=== PATIENT | female | born 1970 | race Caucasian/White ===

== ENCOUNTER → 2018-05-31 08:56 | Outpatient (CLI) | payer BC | END | disposition home or self-care (01) | LOC: D.MRI 05-15 15:30 | DX: M54.14 Radiculopathy, thoracic region (principal) ==

== ENCOUNTER → 2018-09-30 13:24 | Outpatient (CLI) | payer BC ==
[2018-09-30 15:03] LABS: BASOPHILS 0.4 % (0-2); EOSINOPHILS 2.8 % (0-7); HEMATOCRIT 40.7 % (36.0-48.0); HEMOGLOBIN 13.5 g/dL (12-16); IMMATURE GRANULOCYTES 0.2 % (0-5); LYMPHOCYTES 43.3 % (15-50); MCH 28.1 pg (26.0-34.0); MCHC 33.2 g/dL (31.0-37.0); MCV 84.6 fL (80.0-100.0); MEAN PLATELET VOLUME 10.2 fL (7.4-10.4); MONOCYTES 5.4 % (2-11); NEUTROPHILS 47.9 % (40-80); PLATELET COUNT 294 10x3/uL (130-400); RBC 4.81 10x6/uL (4.00-5.40); RDW 14.8 % (11.5-14.5); WBC 10.9 10x3/uL (4.8-10.8)
[2018-09-30 15:47] LABS: % SATURATION 11 % (15-55); IRON 37 ug/dl (35-150); TOTAL IRON BIND CAPACITY 332 ug/dl (260-445); UNSAT IRON BIND CAPACITY 295 ug/dl (150-375)
[2018-09-30 15:55] LABS: ALKALINE PHOSPHATASE 75 U/L (46-116); ALT (SGPT) 26 U/L (10-68); BILIRUBIN - TOTAL 0.25 mg/dL (0.2-1.3); CALC OSMOLALITY 277 mosm/kg (275-300); CALCIUM 8.9 mg/dL (8.5-10.1); CHLORIDE - SERUM 103 mmol/L (98-107); CHOL - HDL RATIO 3.2 ratio (2.3-4.1); CHOLESTEROL, TOTAL 149 mg/dL (0-200); CREATININE - SERUM 0.8 mg/dL (0.6-1.3); GLUCOSE 95 mg/dL (74-106); HDL CHOLESTEROL 47 mg/dL (32-96); LDL CHOLESTEROL 77 mg/dL (0-100); LDL-HDL RATIO 1.6 ratio (1.5-3.5); PROTEIN - SERUM 7.3 g/dL (6.4-8.2); SODIUM 140 mmol/L (136-145); T4 THYROXIN - FREE 1.34 ng/dL (0.76-1.46); T4 THYROXINE 11.1 ug/dL (4.7-13.3); THYROID STIMULATING HORMONE 0.44 uIU/mL (0.36-3.74); TRIGLYCERIDE 125 mg/dL (30-200); UREA NITROGEN 11 mg/dL (7-18); eGFR NON AFRICAN AMERICAN 81 mL/min (90-120)
[2018-10-01 07:18] LABS: VITAMIN D 25 HYDROXY 43.2 ng/mL (30.0-100.0)
[2018-10-01 08:13] LABS: T3 - FREE 2.5 pg/mL (2.0-4.4)
[2018-10-01 11:12] LABS: FOLATE (FOLIC ACID) - SERUM >20.0 ng/mL (>3.0)
== END | disposition home or self-care (01) ==
LOC: D.LAB 13:24
PROVIDERS: ATTEND Surgery
DX: E55.9 Vitamin D deficiency, unspecified (principal); E03.9 Hypothyroidism, unspecified; E03.4 Atrophy of thyroid (acquired); R53.83 Other fatigue; E51.9 Thiamine deficiency, unspecified; D51.9 Vitamin B12 deficiency anemia, unspecified; R68.89 Other general symptoms and signs

== ENCOUNTER → 2018-12-27 09:37 | Outpatient (CLI) | payer BC ==
[2018-12-27 14:53] LABS: BASOPHILS 0.4 % (0-2); EOSINOPHILS 2.9 % (0-7); HEMATOCRIT 40.1 % (36.0-48.0); HEMOGLOBIN 13.4 g/dL (12-16); IMMATURE GRANULOCYTES 0.2 % (0-5); LYMPHOCYTES 40.3 % (15-50); MCH 29.1 pg (26.0-34.0); MCHC 33.4 g/dL (31.0-37.0); MCV 87.2 fL (80.0-100.0); MEAN PLATELET VOLUME 10.8 fL (7.4-10.4); MONOCYTES 5.1 % (2-11); NEUTROPHILS 51.1 % (40-80); PLATELET COUNT 300 10x3/uL (130-400); RDW 14.2 % (11.5-14.5)
[2018-12-27 15:42] LABS: ALBUMIN 3.6 g/dL (3.4-5.0); ALKALINE PHOSPHATASE 82 U/L (46-116); ALT (SGPT) 16 U/L (10-68); BILIRUBIN - TOTAL 0.18 mg/dL (0.2-1.3); CALC OSMOLALITY 280 mosm/kg (275-300); CALCIUM 8.8 mg/dL (8.5-10.1); CARBON DIOXIDE 31.6 mmol/L (21.0-32.0); CHLORIDE - SERUM 105 mmol/L (98-107); CHOL - HDL RATIO 2.7 ratio (2.3-4.1); CHOLESTEROL, TOTAL 137 mg/dL (0-200); CREATININE - SERUM 0.8 mg/dL (0.6-1.3); GLUCOSE 114 mg/dL (74-106); HDL CHOLESTEROL 51 mg/dL (32-96); LDL CHOLESTEROL 64 mg/dL (0-100); LDL-HDL RATIO 1.3 ratio (1.5-3.5); POTASSIUM - SERUM 4.6 mmol/L (3.5-5.1); PROTEIN - SERUM 6.7 g/dL (6.4-8.2); SODIUM 141 mmol/L (136-145); T4 THYROXIN - FREE 1.17 ng/dL (0.76-1.46); T4 THYROXINE 9.1 ug/dL (4.7-13.3); THYROID STIMULATING HORMONE 0.32 uIU/mL (0.36-3.74); TRIGLYCERIDE 114 mg/dL (30-200); UREA NITROGEN 11 mg/dL (7-18); eGFR NON AFRICAN AMERICAN 81 mL/min (90-120)
== END | disposition home or self-care (01) ==
LOC: D.LAB 09:37
PROVIDERS: ATTEND Surgery
DX: E55.9 Vitamin D deficiency, unspecified (principal); E51.9 Thiamine deficiency, unspecified; E87.8 Other disorders of electrolyte and fluid balance, not elsewhere classified; E11.8 Type 2 diabetes mellitus with unspecified complications; E03.9 Hypothyroidism, unspecified; E03.4 Atrophy of thyroid (acquired); R53.83 Other fatigue

== ENCOUNTER 2019-03-21 01:42 | Inpatient (IN) | payer BC ==
[~2019-03-21] VITALS: Ht 162.6 cm; Wt 104.3 kg
[2019-03-21] MEDS ORDERED: LISINOPRIL30 MG PO (01:48)
[2019-03-21] MEDS ORDERED: METOPROLOL TART25 MG PO (01:48)
[2019-03-21] MEDS ORDERED: GLUCOVANCE PO (01:49)
[2019-03-21] MEDS ORDERED: NOVOLIN 70/30 110 ML SC (01:49)
[2019-03-21 01:57] LABS: BASOPHILS 0.4 % (0-2); EOSINOPHILS 1.7 % (0-7); HEMATOCRIT 43.6 % (36.0-48.0); HEMOGLOBIN 14.7 g/dL (12-16); IMMATURE GRANULOCYTES 0.2 % (0-5); LYMPHOCYTES 28.1 % (15-50); MCH 29.6 pg (26.0-34.0); MCHC 33.7 g/dL (31.0-37.0); MCV 87.7 fL (80.0-100.0); MEAN PLATELET VOLUME 10.4 fL (7.4-10.4); MONOCYTES 3.4 % (2-11); NEUTROPHILS 66.2 % (40-80); PLATELET COUNT 314 10x3/uL (130-400); RBC 4.97 10x6/uL (4.00-5.40); RDW 13.8 % (11.5-14.5); WBC 12.6 10x3/uL (4.8-10.8)
[2019-03-21 02:14] LABS: ALBUMIN 3.9 g/dL (3.4-5.0); ALKALINE PHOSPHATASE 79 U/L (46-116); ALT (SGPT) 14 U/L (10-68); BILIRUBIN - TOTAL 0.28 mg/dL (0.2-1.3); CALC OSMOLALITY 286 mosm/kg (275-300); CALCIUM 9.4 mg/dL (8.5-10.1); CARBON DIOXIDE 26.8 mmol/L (21.0-32.0); CHLORIDE - SERUM 106 mmol/L (98-107); CREATININE - SERUM 1.1 mg/dL (0.6-1.3); GLUCOSE 136 mg/dL (74-106); POTASSIUM - SERUM 4.5 mmol/L (3.5-5.1); PROTEIN - SERUM 7.6 g/dL (6.4-8.2); SODIUM 143 mmol/L (136-145); UREA NITROGEN 13 mg/dL (7-18); eGFR NON AFRICAN AMERICAN 56 mL/min (90-120)
[2019-03-21 02:18] LABS: LIPASE 146 U/L (73-393); TROPONIN-I < 0.017 ng/mL (0.000-0.060)
--- NOTE | 2019-03-21 03:10 | NUR ---
BLADDER SCAN DONE ON PT 177 ML IN BLADDER.
--- NOTE | 2019-03-21 03:18 | NUR ---
PT GIVEN HEAT PACK FOR PAIN.
--- NOTE | 2019-03-21 03:35 | NUR ---
PT AMBULATED TO RESTROOM INDEPENDENTLY.
--- NOTE | 2019-03-21 03:41 | NUR ---
URINE SENT TO LAB.
[2019-03-21] MEDS ORDERED: ZOFRAN ODT4 MG/UDTAB PO (03:49)
[2019-03-21] MEDS ORDERED: HYDROCODON-ACE1 EA10 PO (03:49)
[2019-03-21 04:01] LABS: APPEARANCE HAZY (CLEAR); BILIRUBIN NEGATIVE (NEGATIVE); COLOR YELLOW (YELLOW); GLUCOSE NEGATIVE (NEGATIVE); KETONE MODERATE mg/dL (NEGATIVE); NITRITE NEGATIVE (NEGATIVE); PROTEIN 1+ mg/dL (NEGATIVE); SPECIFIC GRAVITY 1.015 (1.005-1.020); UROBILINOGEN NORMAL (NORMAL)
[2019-03-21 04:02] LABS: UDS - AMPHET NEGATIVE QUAL (NEGATIVE); UDS - BARB NEGATIVE QUAL (NEGATIVE); UDS - BENZO POSITIVE QUAL (NEGATIVE); UDS - COCAINE NEGATIVE QUAL (NEGATIVE); UDS - OPIATE POSITIVE QUAL (NEGATIVE); UDS - PCP NEGATIVE QUAL (NEGATIVE); UDS - THC NEGATIVE QUAL (NEGATIVE)
[2019-03-21 04:03] LABS: BACTERIA MODERATE /hpf (NEGATIVE); CALCIUM OXALATE CRYSTALS 0-5 /hpf (NONE SEEN); EPITHELIAL CELLS 0-5 /hpf (0-5); MUCUS <1+ /lpf (NONE SEEN); RED CELLS - URINE 0-5 /hpf (0-5)
--- NOTE | 2019-03-21 05:20 | NUR ---
RECEIVED PATIENT TO ROOM 1206 VIA WHEELCHAIR. PATIENT AMBULATED INDEPENDENTLY TO BATHROOM. PATIENT C/O PAIN IN LOWER ABDOMEN. QUICK START, MED REC, ADULT HX, SUICIDE SCREENING COMPLETE. PRN DILAUDID ADMINISTERED PER ORDERS. PATIENT HAS IV TO LT AC INFUSING NS @125ML/HR, PATENT, DRSG C/D/I. FRESH ICE WATER GIVEN. PATIENT DENIES FURTHER NEEDS AT THIS TIME. CL IN REACH, BED LOCKED AND LOWERED. WILL CTM.
[2019-03-21] MEDS ORDERED: PRAVASTATIN SOD10 MG PO (05:40)
[2019-03-21 06:07] VITALS: BP 124/59
--- NOTE | 2019-03-21 07:57 | NUR ---
PT RESTING. RR EVEN AND UNLABORED. DENIES NEEDS OR PAIN AT THIS TIME.WILL CONTINUE TO MONITOR.
[2019-03-21 09:04] VITALS: Ht 162.6 cm; Wt 104.3 kg
[2019-03-21 09:13] VITALS: BP 116/68
--- NOTE | 2019-03-21 12:09 | NUR ---
I have reviewed this patient and I concur with the Shift Assessment completed by the Licensed Practical Nurse today this shift.
--- NOTE | 2019-03-21 14:59 | NUR ---
PT REQUESTED/INSISTED THAT SHE MANAGE HER OWN BLOOD SUGAR. DR. NOONAN MADE AWARE OF THIS. STATED SHE DID NOT HAVE A PROBLEM WITH IT. MOLDER CLOSED MOLDS CONTACTED FOR CORRECT POLICY OVER SUCH REQUEST. STATED PT NEEDED TO HAVE MEDICATION SENT TO PHARMACY FOR LABELLING AND THAT PT HAD TO ADMINISTER MEDICATION UNDER NURSING SUPERVISION. PT WILL BE MADE AWARE OF THIS. ORDERS TO D/C CURRENT INSULIN MEDICATION WERE RECIEVED VIA TELEPHONE.
--- NOTE | 2019-03-21 15:45 | NUR ---
TOOK PT'S INSULIN PEN TO PHARMACY TO BE LABELLED. INSULIN PEN WAS SET BACK ON BED SIDE TABLE. PT C/O 02/18 PAIN IN RIGHT FLANK. TORODOL RECIEVED PER ORDER.
--- NOTE | 2019-03-21 18:26 | NUR ---
CHECKED TO SEE IF PT HAD RECIEVED INSULIN, PT STATED SHE HAD JUST WOKE UP AND DID NOT ADMINISTER INSULIN. UPON FURTHER INSPECTION, INSULIN PEN WAS NOT ON THE BEDSIDE TABLE WHERE IT WAS LEFT, NOR ANYWHERE IN THE ROOM. PT STATES THE PEN MIGHT HAVE ACCIDENTALLY BEEN TAKEN WITH HER MEAL TRAY. DIETARY CONTACTED, STATES THEY DID NOT SEE AN INSULIN PEN. PHARMACY CONTACTED, STATES THEY DO NOT HAVE ANOTHER INSULIN PEN IN THAT SPECIFIC BRAND AND DOSAGE. KELLEE, COMMUNICATIONS BILLING ANALYST MADE AWARE OF SITUATION, STATES SHE WILL CALL BACK.
--- NOTE | 2019-03-21 18:41 | NUR ---
PT STATES SHE WILL HAVE HER BRING HER A NEW INSULIN PEN IN THE AM. STATED SHE WILL BE OKAY FOR THE NIGHT BECAUSE HER FSBS WAS 230. REHAB AID MADE AWARE.
--- NOTE | 2019-03-21 19:25 | NUR ---
TALITA LYING IN BED. PATIENT STATES PAIN IS A 7/10. SAYS SHE HAS NEVER HAD THIS MUCH PAIN IN HER ENTIRE LIFE. ENCOURAGED PATIENT TO CALL WITH ANY NEEDS. CALL LIGHT AND BEDSIDE TABLE WITHIN REACH.
[2019-03-21 19:40] VITALS: BP 121/76
--- NOTE | 2019-03-21 20:28 | NUR ---
PATIENT ALERT AND ORIENTED X4. PATIENT GAVE HERSELF 15 UNITS OF INSULIN WITH PEN.
--- NOTE | 2019-03-21 22:38 | NUR ---
BS 287. PATIENT ALERT AND ORIENTED X4. PATIENT SELF ADMINISTERED 10 UNITS OF INSULIN.
[2019-03-21 23:39] VITALS: BP 106/60
--- NOTE | 2019-03-22 01:57 | NUR ---
PATIENT ALERT AND ORIENTED X4. BLOOD SUGAR 203. PATIENT ADMINISTERED 15 UNITS OF INSULIN.
[2019-03-22 04:22] VITALS: BP 89/50
[2019-03-22 07:17] LABS: BASOPHILS 0.4 % (0-2); EOSINOPHILS 1.5 % (0-7); HEMATOCRIT 40.9 % (36.0-48.0); HEMOGLOBIN 12.9 g/dL (12-16); IMMATURE GRANULOCYTES 0.3 % (0-5); LYMPHOCYTES 7.8 % (15-50); MCH 29.2 pg (26.0-34.0); MCHC 31.5 g/dL (31.0-37.0); MEAN PLATELET VOLUME 10.5 fL (7.4-10.4); MONOCYTES 5.9 % (2-11); NEUTROPHILS 84.1 % (40-80); RBC 4.42 10x6/uL (4.00-5.40); RDW 14.5 % (11.5-14.5); WBC 14.8 10x3/uL (4.8-10.8)
[2019-03-22 07:35] LABS: MCV 92.5 fL (80.0-100.0); PLATELET COUNT 184 10x3/uL (130-400)
[2019-03-22 08:38] LABS: ANION GAP 8.9 mmol/L (8-16); CALCIUM 8.2 mg/dL (8.5-10.1); CARBON DIOXIDE 26.4 mmol/L (21.0-32.0); POTASSIUM - SERUM 4.3 mmol/L (3.5-5.1)
[2019-03-22 08:39] LABS: CREATININE - SERUM 1.4 mg/dL (0.6-1.3)
[2019-03-22 09:07] VITALS: BP 112/61
--- NOTE | 2019-03-22 09:11 | NUR ---
ALERT AND ORIENTED. L ARM IV INFILTRATED. WARM HEAT APPLIED AND IV CATH REMOVED. RESP EVEN AND UNLABORED. CL IN REACH.
--- NOTE | 2019-03-22 10:57 | NUR ---
SL SITED R HAND X 2 STICKS BY ANOTHER NURSE. FLUSHES AND INFUSING WO DIFFICULTY.
--- NOTE | 2019-03-22 13:44 | NUR ---
NO CHANGE IN ASSESSMENT. RESTING WO C/O PAIN AT THIS TIME. PAIN MEDS GIVEN EARILER. CL IN REACH.
--- NOTE | 2019-03-22 14:14 | NUR ---
PATIENT'S DAUGHTER HELPING HER GET BATH.
[2019-03-22 15:29] VITALS: BP 96/48
[2019-03-22 19:30] VITALS: BP 143/67
--- NOTE | 2019-03-22 19:30 | NUR ---
PATIENT RESTING IN BED WITH C/O 10/10 THROBBING PAIN IN HER HEAD. PATIENT IS ALSO VOMITING AT THIS TIME. ADMINISTERED TORADOL PER ORDERS. VSS. PATIENT DENIES OTHER NEEDS AT THIS TIME. BED IN LOWEST POSITION AND CALL LIGHT WITHIN REACH. ENCOURAGED THE PATIENT TO CALL IF SHE HAS NEEDS. WILL CONTINUE TO MONITOR.
--- NOTE | 2019-03-22 19:43 | NUR ---
PATIENT RESTING IN BED WITH C/O 7/10 PAIN IN HER HEAD. ADMINISTERED PATIENT'S NIGHT MEDS WITH NORCO PER HER REQUEST. PATIENT VOMITED AFTER TAKING HER PO MEDS. PATIENT REFUSED PO MEDS AT THIS TIME. I GAVE PATIENT AN ICE PACK FOR HER HEAD AND A COLD CLOTH. PATIENT STATED THE ICE PACK FEELS BETTER AND DENIES OTHER NEEDS AT THIS TIME. BED IN LOWEST POSITION AND CALL LIGHT WITHIN REACH. ENCOURAGED THE PATIENT TO CALL IF SHE HAS NEEDS. WILL CONTINUE TO MONITOR.
[2019-03-22 23:49] VITALS: BP 126/50
[2019-03-23 04:45] VITALS: BP 122/55
[2019-03-23 07:17] VITALS: BP 142/78
--- NOTE | 2019-03-23 07:21 | NUR ---
pt awake and oriented LYING IN BED. NO COMPLAINTS/COCNERNS, ALL QUESTIONS ASNWERED TO THE BEST OF MY ABILITY. NO FAMILY PRESENT AT BEDSIDE AT THIS TIME. CL IN REACH, SRX2.
[2019-03-23 08:14] LABS: BASOPHILS 0.2 % (0-2); EOSINOPHILS 0.8 % (0-7); HEMATOCRIT 38.4 % (36.0-48.0); HEMOGLOBIN 12.8 g/dL (12-16); IMMATURE GRANULOCYTES 0.3 % (0-5); LYMPHOCYTES 14.7 % (15-50); MCH 29.5 pg (26.0-34.0); MCHC 33.3 g/dL (31.0-37.0); MEAN PLATELET VOLUME 10.5 fL (7.4-10.4); PLATELET COUNT 180 10x3/uL (130-400); RBC 4.34 10x6/uL (4.00-5.40)
[2019-03-23 08:16] LABS: ANION GAP 14.4 mmol/L (8-16); CALCIUM 8.3 mg/dL (8.5-10.1); CARBON DIOXIDE 23.8 mmol/L (21.0-32.0); CREATININE - SERUM 1.3 mg/dL (0.6-1.3); POTASSIUM - SERUM 4.2 mmol/L (3.5-5.1)
[2019-03-23 08:18] LABS: MCV 88.5 fL (80.0-100.0); WBC 10.5 10x3/uL (4.8-10.8)
[2019-03-23] MEDS ORDERED: NOVOLIN 70/30 110 ML SC (08:33)
[2019-03-23] MEDS ORDERED: LEVAQUIN750 MG PO (09:01)
[2019-03-23] MEDS ORDERED: FLOMAX0.4 MG PO (09:01)
[2019-03-23] MEDS ORDERED: TORADOL10 MG PO (10:01)
--- NOTE | 2019-03-23 10:51 | NUR ---
PT STATES HER RIDE WILL NOT BE HERE FOR ABOUT 1 HOUR OR SO. PAPERWORK SIGNED, I/V OUT TIP INTACT.
--- NOTE | 2019-03-23 11:12 | NUR ---
I have reviewed this patient and I concur with the Shift Assessment completed by the Licensed Practical Nurse today this shift.
--- NOTE | 2019-03-23 12:03 | NUR ---
PT WALKED OUT VIA SELF AMBULATION, DENIES WANT/NEED FOR A WHEELCHAIR[facility]
--- NOTE | 2019-03-23 14:57 | MORECARE ---
CASE MANAGEMENT DISCHARGE SUMMARY PATIENT: RICHAR ADAMSON UNIT: [id number] ADM DATE: 03/22/19 AGE: 48 : [birth year] SEX: F ROOM/BED: D.1206 AUTHOR: GABRIELE MCCRAY PHYSICIAN: REFERRING PHYSICIAN: NATHAN GOOD MD DATE OF SERVICE: 03/23/19 Discharge Plan Patient Name: [facility]ICHAR ADAMSON [facility] [facility] 1970 Planned Disposition: Home Anticipated Discharge Date: Discharge Date: 03/23/2019 Expected LOS: Initial Reviewer: [email or web address] Initial Review Date: 03/21/2019 Generated: 03/23/19 3:57 pm Patient Name: RICHAR ADAMSON Page 15733 at 2956 All edits/amendments must be made on the electronic document DICTATION DATE: 03/23/191456 HAIRSPRING ASSEMBLER: RODRIGUEZ 03/23/191456 RPT#: [id number] DC DATE:03/23/19 STATUS: DIS IN [facility] [address] [place] [address] END OF REPORT
[2019-03-31] MEDS ORDERED: LEVOXYL175 MCG PO (14:12)
[2019-03-31] MEDS ORDERED: PROZAC20 MG PO (14:12)
[2019-03-31] MEDS ORDERED: BAYER CHEWABLE81 MG PO (14:13)
[2019-03-31] MEDS ORDERED: MERIBIN5 MG PO (14:20)
[2019-03-31] MEDS ORDERED: MULTI-DAY VITAM1 TAB PO (14:20)
[2019-03-31] MEDS ORDERED: MAGNESIUM OXID250 MG PO (14:20)
[2019-03-31] MEDS ORDERED: KEFLEX500 MG PO (14:22)
== END 2019-03-23 12:04 | disposition home or self-care (01) | DRG 872 ==
LOC: D.ER 01:42 → OBSVTIME 04:29 → D.M3 04:29
PROVIDERS: Family Medicine; ADMIT Internal Medicine Nephrology; ATTEND Internal Medicine Nephrology
DX: A41.9 Sepsis, unspecified organism (principal); N13.2 Hydronephrosis with renal and ureteral calculous obstruction; F17.213 Nicotine dependence, cigarettes, with withdrawal; N39.0 Urinary tract infection, site not specified; I10 Essential (primary) hypertension; E78.5 Hyperlipidemia, unspecified; E11.9 Type 2 diabetes mellitus without complications; E66.01 Morbid (severe) obesity due to excess calories; R51 Headache

== ENCOUNTER 2019-04-01 06:30 | Inpatient (IN) | payer BC ==
[2019-03-31 14:56] LABS: BASOPHILS 0.3 % (0-2); EOSINOPHILS 1.7 % (0-7); HEMATOCRIT 40.8 % (36.0-48.0); HEMOGLOBIN 13.6 g/dL (12-16); IMMATURE GRANULOCYTES 0.3 % (0-5); LYMPHOCYTES 43.1 % (15-50); MCH 29.3 pg (26.0-34.0); MCHC 33.3 g/dL (31.0-37.0); MCV 87.9 fL (80.0-100.0); MEAN PLATELET VOLUME 9.3 fL (7.4-10.4); MONOCYTES 4.5 % (2-11); NEUTROPHILS 50.1 % (40-80); RBC 4.64 10x6/uL (4.00-5.40); RDW 13.9 % (11.5-14.5); WBC 14.3 10x3/uL (4.8-10.8)
[2019-03-31 15:08] LABS: APTT 43.2 SECONDS (22.8-39.4); PLATELET COUNT 463 10x3/uL (130-400); PROTIME 12.7 SECONDS (11.6-15.0)
[2019-03-31 15:10] LABS: ANION GAP 9.9 mmol/L (8-16); CALCIUM 8.7 mg/dL (8.5-10.1); CARBON DIOXIDE 29.4 mmol/L (21.0-32.0); CREATININE - SERUM 0.9 mg/dL (0.6-1.3); POTASSIUM - SERUM 4.3 mmol/L (3.5-5.1)
[~2019-04-01] VITALS: Ht 162.6 cm; Wt 102.7 kg
--- NOTE | ~2019-04-01 | HEMODYNAMI ---
PATIENT:RICHAR ADAMSON MEDICAL RECORD: [id number] : 68 LOCATION:Any ADMISSION DATE: 04/01/19 Generatedon:04/01/201910:43 Patient name: RICHAR ADAMSON Patient #: [id number] SSN: : 1970 Date of study: 04/01/2019 Page: Of Hemodynamic Procedure Report Patient Data Patient Demographics Procedure consent was obtained First Name: RICHAR Gender: Female Last Name: JUAN DIEGO : 1970 [facility] Initial: VELMA Age: 48 year(s) Patient #: [id number] Race: Unknown Additional ID: [id number] Contact details Address: [address] [place] [address] State: [facility] Zip code: [address] Past Medical History Allergies Allergen Reaction Date Comments Reported Other allergy 04/01/2019 flomax Admission Admission Data Admission Date: 04/01/2019 Admission Time: 6:30 Procedure Procedure Types Cath Procedure Peripheral Cath Diagnostic Procedure Plunket Nurse Peripheral Procedures Nephro Perc Neph Uret Cath Procedure Description Procedure Date Procedure Date: 04/01/2019 Procedure Start Time: 9:43 Procedure Staff Name Function Home Maki MD Performing Physician Bonny Khalil RT Milk Drier Brittni Beltran RN Nurse Reyna Diaz RN Nurse IMTIAZ GRACIA RT Scrub Procedure Data Cath Procedure Fluoroscopy Diagnostic fluoroscopy Total fluoroscopy Time: time: 14.5 min 14.5 min Diagnostic fluoroscopy Total fluoroscopy dose: 516 dose: 516 mGy mGy Contrast Material Contrast Material Type Amount (ml) Isovue 300 35 Procedure Medications Medication Administration Route Dosage Heparin Flush Bag added to field 1 bags (1000units/500ml NS) Lidocaine 1% added to field 20 Versed I.V. 1 mg Fentanyl I.V. 50 mcg Versed I.V. 1 mg Fentanyl I.V. 50 mcg Benadryl I.V. 50 mg Versed I.V. 0.5 mg Fentanyl I.V. 25 mcg Versed I.V. 0.5 mg Fentanyl I.V. 25 mcg Versed I.V. 1 mg Fentanyl I.V. 50 mcg Versed I.V. 1 mg Fentanyl I.V. 50 mcg Hemodynamics Rest Heart Rate: 56 (bpm) Snapshots Pre Cath Intra NCS Post Cath Vital Signs Time Heart Resp SPO2 etCO2 NIBP (mmHg) Rhythm Pain Sedation Rate (ipm) (%) (mmHg) Status Level (bpm) 9:20:21 55 6 100 25.6 152/89(97) NSR 0 (11) 10(A) , No pain 9:24:37 55 13 100 38.5 145/83(98) NSR 0 (11) 10(A) , No pain 9:28:49 53 12 100 36.2 154/83(99) NSR 0 (11) 10(A) , No pain 9:32:47 51 16 100 33.9 118/80(95) NSR 0 (11) 10(A) , No pain 9:37:46 56 20 100 41.5 131/85(92) NSR 0 (11) 10(A) , No pain 9:41:58 55 15 100 36.9 135/68(92) NSR 0 (11) 10(A) , No pain 9:46:57 53 28 100 36.2 Measuring NSR 0 (11) 9(A) , No pain 9:48:21 52 25 100 38.5 Time NSR 0 (11) 9(A) Exceeded , No pain 9:49:24 65 17 99 30.2 138/97(103) NSR 0 (11) 9(A) , No pain 9:53:30 52 52 100 41.5 146/94(117) NSR 0 (11) 8(A) , No pain 9:57:38 51 49 100 46.1 164/99(117) NSR 0 (11) 8(A) , No pain 10:01:52 61 15 99 38.5 157/107(129) NSR 0 (11) 8(A) , No pain 10:06:04 59 33 98 38.5 156/105(141) NSR 0 (11) 8(A) , No pain 10:11:03 58 17 100 43 Measuring NSR 0 (11) 8(A) , No pain 10:11:07 57 17 100 42.3 143/101(117) NSR 0 (11) 8(A) , No pain 10:15:19 54 12 100 46 136/78(110) NSR 0 (11) 8(A) , No pain 10:19:27 55 15 99 154/81(105) NSR 0 (11) 8(A) , No pain 10:23:41 53 19 99 138/89(112) NSR 0 (11) 8(A) , No pain 10:27:46 54 16 100 146/93(115) NSR 0 (11) 8(A) , No pain 10:31:54 55 12 100 43 142/99(113) NSR 0 (11) 8(A) , No pain 10:36:02 57 14 100 44.5 156/94(121) NSR 0 (11) 8(A) , No pain 10:40:16 55 23 100 150/93(114) NSR 0 (11) 8(A) , No pain Medications Time Medication Route Dose Verified Delivered Reason Notes Effe ctiveness by by 9:33:49 Heparin Flush added 1 Home Bhat used for Bag to bags Maki Maki procedure (1000units/500ml field MD AVINA NS) 9:34:06 Lidocaine 1% added 20ml Home Bhat for local to vial Maki Maki anesthetic field MD AVINA 9:43:49 Versed I.V. 1 mg Home Elkins for Maki Beltran RN sedation 9:44:02 Fentanyl I.V. 50 Home Elkins for mcg Maki Beltran RN sedation 9:49:52 Versed I.V. 1 mg Home Elkins for Maki Beltran RN sedation 9:50:00 Fentanyl I.V. 50 Home Stratton[place] for mcg Maki Beltran RN sedation 9:52:56 Benadryl I.V. 50 mg Home Strattoni Per Maki Beltran RN physician 9:56:36 Versed I.V. 0.5 Home Strattoni for mg Maki Beltran RN sedation 9:56:45 Fentanyl I.V. 25 Home Strat[place] for mcg Maki Beltran RN sedation 9:59:23 Versed I.V. 0.5 Home Strat[place] for mg Maki Beltran RN sedation 9:59:30 Fentanyl I.V. 25 Home Brittni for mcg Maki Beltran RN sedation 10:08:15 Versed I.V. 1 mg Home Elkins for Glynn Beltran RN sedation 10:08:24 Fentanyl I.V. 50 Home Elkins for mcg Glynn Beltran RN sedation 10:27:02 Versed I.V. 1 mg Home Elkins for Glynn Beltran RN sedation 10:27:10 Fentanyl I.V. 50 Home Elkins for [facility] Glynn Beltran RN sedation Procedure Log Time Note 9:17:34 Time tracking: Regular hours (M-F 7:00 - 5:00) 9:18:19 Plan of Care:Hemodynamics will remain stable., Cardiac rhythm will remain stable., Comfort level will be maintained., Respiratory function will remain adequate., Patient/ family verbilizes understanding of procedure., Procedure tolerated without complication., Recovers from procedure without complications.. 9:18:27 Patient received from Outpatients to IR Alert and oriented. Tansferred to table in Prone position. 9:18:31 Signed procedure consent form obtained from patient. 9:18:37 ECG and BP/O2 sat monitors applied to patient. 9:18:38 Vital chart was started 9:18:42 Baseline sample Acquired. 9:18:44 Full Disclosure recording started 9:18:45 - 9:18:52 H&P Date Dictated: 04/01/2019 Within 30 days and on chart., H&P Addendu m completed by physician on day of procedure. (MUST COMPLETE FOR ALL OUTPATIENTS). 9:18:54 Pre-procedure instructions explained to patient. 9:18:55 Pre-op teaching completed and patient verbalized understanding. 9:18:58 Family in patients room. 9:19:02 Patient NPO since Midnight. 9:19:29 Patient allergic to Other allergyflomax 9:19:40 Is the patient allergic to Iodine/contrast media? No. 9:19:51 Is patient on blood thinner?No 9:20:02 Patient diabetic? Yes. 9:20:04 If diabetic: On Metformin? Yes 9:20:11 - 9:20:12 ----Pre-sedation anethsthesia assessment.---- 9:20:16 Previous problem with sedation/anesthesia? No ? 9:20:21 Snore? Yes 9:20:23 Sleep apnea? Yes 9:20:25 Deviated septum? No 9:20:26 Opens mouth fully? Yes 9:20:29 Sticks out tongue? Yes 9:20:42 Airway obstruction? No ? 9:20:53 Dentures? No ? 9:20:55 - 9:21:05 IV patent on arrival in right hand with D5/.45%NaCl at KVO. 9:21:30 Right Renal was prepped with chlora-prep and draped in sterile fashion. 9:21:37 Fire Safety Assessment: A--An alcohol-based skin anteseptic being used preoperatively., C--Open oxygen or nitrous oxide is being used. 9:21:43 - 9:22:04 Use device set IR Diagnostic 9:22:34 KIT, INTRODUCER ACCUSTICK II W/C ([id number]) opened to sterile field. 9:22:35 GLIDE CATHETER 5FR ANGLED 65cm (CG507) opened to sterile field. 9:22:52 Tegaderm 4 x 4 (1626W) opened to sterile field. 9:22:53 Sterile Angiographic Pack opened to sterile field. 9:22:55 Bag Decanter () opened to sterile field. 9:23:34 - 9:33:49 Heparin Flush Bag (1000units/500ml NS) 1 bags added to field was administered by Home Maki MD; used for procedure; Verbal order read back and verified. 9:34:06 Lidocaine 1% 20ml vial added to field was administered by Home Maki MD; for local anesthetic; Verbal order read back and verified. 9:42:16 Physician arrived 9:42:16 --------ALL STOP TIME OUT------ 9:42:17 Final Timeout: patient, procedure, and site verified with staff and physician. All members of the team are in agreement. 9:43:24 Procedure started. 9:43:34 Local anesthetic to Right Renal area with Lidocaine 1% by Home Maki MD.INITIAL ACCESS ONLY 9:43:49 Versed 1 mg I.V. was administered by Brittni Beltran RN; for sedation; Verbal order read back and verified. 9:44:02 Fentanyl 50 mcg I.V. was administered by Brittni Beltran RN; for sedation; Verbal order read back and verified. 9:49:52 Versed 1 mg I.V. was administered by Brittni Beltran RN; for sedation; Verbal order read back and verified. 9:50:00 Fentanyl 50 mcg I.V. was administered by Brittni Beltran RN; for sedation; Verbal order read back and verified. 9:52:56 Benadryl 50 mg I.V. was administered by Brittni Beltran RN; Per physician; Verbal order read back and verified. 9:56:36 Versed 0.5 mg I.V. was administered by Brittni Beltran RN; for sedation; Verbal order read back and verified. 9:56:45 Fentanyl 25 mcg I.V. was administered by Brittni Beltran RN; for sedation; Verbal order read back and verified. 9:57:11 ROADRUNNER .035 145 glide wire ([id number]) opened to sterile field. 9:57:22 CHIBA 20 X 15 needle opened to sterile field. 9:59:23 Versed 0.5 mg I.V. was administered by Brittni Beltran RN; for sedation; Verbal order read back and verified. 9:59:30 Fentanyl 25 mcg I.V. was administered by Brittni Beltran RN; for sedation; Verbal order read back and verified. 10:08:15 Versed 1 mg I.V. was administered by Brittni Beltran RN; for sedation; Verbal order read back and verified. 10:08:24 Fentanyl 50 mcg I.V. was administered by Brittni Beltran RN; for sedation; Verbal order read back and verified. 10:16:17 AMPLATZ Super stiff 180cm wire ([id number]) opened to sterile field. 10:21:16 NITINOL .018 80cm wire ([id number]) opened to sterile field. 10:27:02 Versed 1 mg I.V. was administered by Brittni Beltran RN; for sedation; Verbal order read back and verified. 10:27:10 Fentanyl 50 mcg I.V. was administered by Brittni Beltran RN; for sedation; Verbal order read back and verified. 10:37:04 two accesses obtained in right kidney 10:37:48 Procedure ended.(Physican Out) 10:38:01 Fluoroscopy time 14.50 minutes. 10:38:06 Fluoroscopy dose: 516 mGy 10:38:06 Flurop Dose total: 516 10:38:10 Contrast amount:Isovue 300 35ml. 10:39:32 Procedure and supply charges have been captured, reviewed, submitted an d are correct. 10:39:40 Report given to Outpatients. 10:43:25 Patient transfered to Outpatients with Stretcher. 10:43:47 Vital chart was stopped Device Usage Item Name Manufacture Quantity Catalog Hospital Part Current Minimal Lot# / Number Charge Number Stock Stock Serial# Code Greg ORONA 1 [id number] [id number] 5 [id number] INTRODUCER Scientific ACCUSTICK II W/C ([id number]) GLIDE Terumo 1 CG507 023373 154714 5 CATHETER 5FR ANGLED 65cm (CG507) Tegaderm 4 x 3M 1 1626W [id number] 456264 [id number] 5 4 (1626W) Sterile Cardinal 1 [id number] 207884 5 Angiographic Health Pack Bag Decanter Microtek 1 2001S 049869 45438 774200 5 (2001S) Medical Inc. [facility] 1 [id number] 768292 535817 877661 5 [id number] .035 145 glide wire (K98396) CHIBA 20 X Cook Medical 1 X01608 277416 746344 5 15 needle AMPLATZ [place] 1 [id number] 960604 870018 515926 5 Super stiff Scientific 180cm wire ([id number]) NITINOL .018 Medtronic 1 [id number] 015648 806464 5 80cm wire ([id number]) Signature Audit [place] Stage Time Signature Unsigned Intra-Procedure 04/01/2019 Bonny Khalil 10:43:44 AM RT(R) [place] [id number] [place] [address]
[~2019-04-01 06:30] MED LIST: BAYER CHEWABLE81 MG PO; FLOMAX0.4 MG PO; GLUCOVANCE PO; HYDROCODON-ACE1 EA10 PO; KEFLEX500 MG PO; LEVAQUIN750 MG PO; LEVOXYL175 MCG PO; LISINOPRIL30 MG PO; MAGNESIUM OXID250 MG PO; MERIBIN5 MG PO; METOPROLOL TART25 MG PO; MULTI-DAY VITAM1 TAB PO; NOVOLIN 70/30 110 ML SC; PRAVASTATIN SOD10 MG PO; PROZAC20 MG PO; TORADOL10 MG PO; ZOFRAN ODT4 MG/UDTAB PO
[2019-04-01 06:55] VITALS: BP 124/63; BMI 38.9
--- NOTE | 2019-04-01 12:06 | NUR ---
1155 CALL PLACED TO VERONA KIMBALL RN WITH REPORT OF LARGE AMOUNT OF DRAINAGE PINKISH RED FROM RIGHT LUMBAR DRESSING. Violetta PLATA R.N. 1205 TO OR PER STRETCHER. Violetta PLATA R.N.
--- NOTE | 2019-04-01 12:15 | NUR ---
9667 REPORT PER PHONE TO OR. Violetta SCANLON R.N., R.N.
[2019-04-01 15:36] VITALS: BP 158/79
[2019-04-01 15:57] VITALS: BP 158/79; Ht 162.6 cm; Wt 102.7 kg
--- NOTE | 2019-04-01 16:00 | NUR ---
TO ROOM 2231 FROM PACU VIS STRETCHER. PT IS WITHOUT DISTRESS. ASSESSMENT PER FLOW SHEET. BROWN TO GRAVITY WITH BLOOD TINTED URINE IN COLLECTION BAG. RIGHT FLANK DRESSING TO SECURE NEPHROSTOMY TUBE TO GRAVITY/BROWN BAG.BLOOD TINTED URINE IN THAT DRAINAGE BAG ALSO.ORIENTATION TO ROOM WITH PT AND FAMILY.MONITORF OR NEEDS.CALL LIGHT IN REACH
--- NOTE | 2019-04-01 18:20 | NUR ---
PAIN MEDS ORDERED PER MAR.TOLERATING DIET. PT REMAINS WITHIOUT DISTRESS.CONT PLAN OF CARE
--- NOTE | 2019-04-01 20:00 | NUR ---
ALERT RESTING IN BED DENIES PAIN OR NEEDS AT THIS TIME, BROWN BAG AND RIGHT NEPHROSTOMY BAG WITH BLOODY URINE NOTED, SEE SHIFT ASSESSMENT, CALL LIGHT IN REACH
[2019-04-01 20:34] VITALS: BP 100/62
[2019-04-02 01:19] VITALS: BP 114/56
--- NOTE | 2019-04-02 04:37 | NUR ---
PT REPORTS BLOOD SUGAR AT 131 THIS AM COVERING SELF WITH 15 UNITS OF 70/30.
[2019-04-02 05:03] VITALS: BP 110/60
--- NOTE | 2019-04-02 07:05 | NUR ---
ALERT AND ORIENTED, RESTING IN BED. NO C/O PAIN. NO S/S OF ACUTE DISTRESS NOTED. NEPHROSTOMY TUBE TO RIGHT SIDE OF ABDOMEN, BLOODY DRAINAGE. BROWN PRESENT. SCDS. IV TO RIGHT HAND, NS INFUSING @ 30ML/HR. SITE PATENT WITHOUT REDNESS OR SWELLING. PATIENT DENIES ANY NEEDS AT THIS TIME. CALL LIGHT IN REACH. WILL CONTINUE TO MONITOR.
[2019-04-02 09:21] VITALS: BP 101/40
--- NOTE | 2019-04-02 11:30 | NUR ---
I have reviewed this patient and I concur with the Shift Assessment completed by the Licensed Practical Nurse today this shift.
--- NOTE | 2019-04-02 11:31 | OP ---
PATIENT NAME: RICHAR ADAMSON MEDICAL RECORD: [id number] :68 LOCATION:D.MS [id number] ADMISSION DATE:04/01/19 SURGEON: CATALINA DURHAM MD DATE OF OPERATION: 04/01/2019 SURGEON: Catalina Durham MD ANESTHESIA: General anesthesia by Nitish Dumont CRNA DIAGNOSIS: Right lower pole 12 mm renal stone. PROCEDURES: Cystoscopy, right percutaneous nephrolithotomy. FINDINGS: Faintly radiodense stone. Stone appears to be soft calcified material. ESTIMATED BLOOD LOSS: Minimal. CLINICAL HISTORY: This is a 48-year-old female, who presented with right flank pain. She was found on CT scan to have a 2 mm right UV junction stone, which she subsequently passed. There was also a 12 mm right lower pole renal stone noted. She had a UTI when she was in the hospital. The urine culture grew E. coli sensitive to Keflex. She has a history of diabetes mellitus type 2 and sleep apnea. She comes today to have a percutaneous nephrolithotomy performed due to the size of the stone. The guidelines are lower pole stone greater than 10 mm can be approached with a PCNL. A stone larger than a 15 mm anywhere can be approached with a PCNL. SHE IS ALLERGIC TO FLOMAX and NSAIDs. She was given Ancef stock control supervisor to the OR. DESCRIPTION OF PROCEDURE: The patient was given induction of general anesthesia in supine position on the stretcher. She was then placed in frog-leg position and prepped and draped. I could see one nephroureteral stent exiting out of the right ureteral orifice. The grasping forceps were placed on this nephroureteral stent and the tip of the nephroureteral stent was brought out through the urethra. The aim of this was to try to get the access wire that we placed through the nephroureteral stent to come out through the urethra where we can clamp it to prevent loss of access. A Palacios catheter was then inserted into the bladder and put to bag drainage. She was then turned into the prone position on the Marco Antonio frame. She was prepped and draped. Dr. Maki had provided two access lines. One of these had a twist in it and it was not going to be suitable for use. We used the one that was more direct. After she was prepped and draped, we accessed the more linearly direct nephroureteral access. An Amplatz Super Stiff wire was placed down through the lumen of this. It did not go through the urethra as we expected, but instead called in the bladder. The nephroureteral access catheter was then removed entirely, leaving the Super Stiff wire in place. The other nephroureteral catheter was removed. We then made a small incision on either side of the Super Stiff wire. A dual-lumen catheter was then introduced over the wire with the tip of the dual-lumen catheter being in the proximal ureter. Through the second lumen, we inserted a sensor wire down into the bladder. The Sensor wire was going to be used as a safety wire. The dual-lumen catheter was removed, leaving the [address] The safety wire was clamped to the drapes. We worked over the Super Stiff wire. We placed a NephroMax balloon dilator over the Super Stiff wire. The balloon was inflated with 20 atmospheres of pressure and the working sheath was placed down over the balloon into the renal pelvis. Looking with our OPERATIVE REPORT [id number] RICHAR ADAMSON nephroscope, I was at the UP junction. As I pulled back, I used the [place] LithoClast ultrasonic modality to remove blood clots. I did not find any obvious stone in the lower pole calices. Finally, I started to look in the renal pelvis and the upper pole calices. It was evident that the stone material had been migrated from the lower pole into the renal pelvis. It was not an obvious solid stone, rather it was more of a calcified mucoid like material. This was easily removed using the [place] LithoClast ultrasonic modality. Finally, on nephroscopy, there was no further visible material that was calcified. The material was barely visible at all on fluoroscopy. At this point, I decided to abandon further attempts to find any more stone material. The scope was removed. Over the Super Stiff wire, we inserted the 24-English Malecot nephrostomy tube. Once the tube was in correct position, the Super Stiff wire was removed. The working sheath was removed. The safety wire was removed entirely. The nephrostomy tube was sutured to the skin using 2-0 nylon. This was put to bag drainage. The patient was awakened and brought back to the recovery room. She will be admitted for a couple of days. At postop day #2, I intend to remove the nephrostomy tube. TRANSINT:[id number] Voice Confirmation ID: [id number] DOCUMENT ID: [id number] CATALINA DURHAM MD at 1131 CC: [id number] DICTATION DATE: 04/01/19 1344 STEWARD/STEWARDESS SECOND: 04/01/19 1400 ADM IN [facility] [address] [place] [address]
[2019-04-02 12:40] VITALS: BP 112/56
[2019-04-02 16:56] VITALS: BP 112/52
--- NOTE | 2019-04-02 17:10 | MORECARE ---
CASE MANAGEMENT DISCHARGE SUMMARY PATIENT: RICHAR ADAMSON UNIT: [id number] ADM DATE: 04/01/19 AGE: 48 : [birth year] SEX: F ROOM/BED: D.2231 AUTHOR: MAHENDRA,DOC PHYSICIAN: REFERRING PHYSICIAN: CATALINA DURHAM MD DATE OF SERVICE: 04/02/19 Discharge Plan Patient Name: RICHAR ADAMSON Facility: [facility]:[place] : 1970 Planned Disposition: Home Anticipated Discharge Date: 04/03/19 Discharge Date: Expected LOS: 2 Initial Reviewer: [email or web address] Initial Review Date: 04/02/2019 Generated: 04/02/19 6:09 pm Comments DCP- Discharge Planning Updated by [email or web address]: Lilibeth Boland on 04/02/19 4:[address] Patient Name: RICHAR ADAMSON Admission Status: Elective Accout number: [id number] Admission Date: 04-01-2019 : 1970 Admission Diagnosis: Attending: TATIANA DURHAM Current LOS: 1 Anticipated DC Date: 04-03-2019 Planned Disposition: Home Primary Insurance: [employer] [facility] Discharge Planning Comments: CM met with patient to complete initial dc planning assessment. CM educated patient on the CM role and verbal consent given by patient to complete assessment. Patient lives at home with her and 13 year old daughter. At discharge patient plans to return and feels this is a safe discharge. CM discussed availability of home health, rehab services, and medical equipment. Patient denied known discharge needs at this time. CM will continue to follow and will assist as needed with dc plans/needs. Communications Intern: Lilibeth Boland DCPIA - Discharge Planning Initial Assessment Updated by [email or web address]: Lilibeth Boland on 04/02/19 4:59 pm * Is the patient Alert and Oriented? Yes * How many steps to enter\\exit or inside your home? 3/0 * PCP Dr. Galaviz * Pharmacy [facility] * Preadmission Environment Home with Family * ADLs Independent * Equipment CPAP * List name and contact numbers for known caregivers / representatives who currently or will assist patient after discharge: Delfino Lunsford" Marco Antonio - [phone] * Verbal permission to speak to the caregivers and representatives has been obtained from the patient. Yes * Community resources currently utilized None * Please name any agencies selected above. [facility] for CPAP supplies * Additional services required to return to the preadmission environment? No * Can the patient safely return to the preadmission environment? Yes * Has this patient been hospitalized within the prior 30 days at any hospital? No Patient Name: RICHAR ADAMSON Page [id number] at 1710 All edits/amendments must be made on the electronic document DICTATION DATE: 04/02/191708 ASSISTANT DIRECTOR: RODRIGUEZ 04/02/191708 RPT#: [id number] DC DATE: STATUS: ADM IN [facility] [address] [place] [address] END OF REPORT
--- NOTE | 2019-04-02 18:34 | NUR ---
ALERT AND ORIENTED, RESTING IN BED. NO C/O PAIN. NO S/S OF ACUTE DISTRESS NOTED. DENIES ANY NEEDS AT THIS TIME. CALL LIGHT IN REACH. WILL CONTINUE TO MONITOR.
--- NOTE | 2019-04-02 19:29 | NUR ---
IN BED WITH TV ON, ABLE TO VOICE ALL NEEDS. DENIES ANY ACUTE DISTRESS AT THIS TIME, IS UNCOMFORTABLE WHERE NEPHROSTOMY IS ON RIGHT SIDE, BUT NOTHING ACUTE. BROWN CATH WAS TO BE DCD WHEN PATIENT READY, SHE STATES SHE WOULD REALLY LIKE TO GET ONE MORE NIGHTS SLEEP, WILL LET NURSE KNOW THIS SHIFT WHEN SHES READY. WILL HAVE CPAP ON THIS HS.
[2019-04-02 20:39] VITALS: BP 122/46
--- NOTE | 2019-04-02 23:52 | NUR ---
AT 2230 REQUESTED MEDICATION FOR PAIN, MORPHINE GIVEN PER ORDERS. AT THIS TIME, PT IS RESTING QUIETLY.
[2019-04-03 01:22] VITALS: BP 120/57
--- NOTE | 2019-04-03 01:39 | NUR ---
I have reviewed this patient and I concur with the Shift Assessment completed by the Licensed Practical Nurse today this shift.
--- NOTE | 2019-04-03 03:56 | NUR ---
RESTED WELL THIS SHIFT, CALLED FOR ASSISTANCE 2 TIMES WITH NO S/S OF ANY DISTRESS NOTED. WILL NOTE ANY CHANGE.
[2019-04-03 05:03] VITALS: BP 118/51
--- NOTE | 2019-04-03 06:50 | NUR ---
ALERT AND ORIENTED, WALKING AROUND ROOM. NO C/O PAIN. NO S/S OF ACUTE DISTRESS NOTED. IV TO RIGHT HAND, NS INFUSING @ 30ML/HR. SITE PATENT WITHOUT REDNESS OR SWELLING. NEPHROSTOMY TUBE TO RIGHT SIDE, BLOODY DRAINAGE. DENIES ANY NEEDS AT THIS TIME. CALL LIGHT IN REACH. WILL CONTINUE TO MONITOR.
--- NOTE | 2019-04-03 08:36 | MORECARE ---
CASE MANAGEMENT DISCHARGE SUMMARY PATIENT: RICHAR BERNARD UNIT: [id number] ADM DATE: 04/01/19 AGE: 48 : [birth year] SEX: F ROOM/BED: D.2231 AUTHOR: GABRIELE MCCRAY PHYSICIAN: REFERRING PHYSICIAN: CATALINA DURHAM MD DATE OF SERVICE: 04/03/19 Discharge Plan Patient Name: RICHAR BERNARD Facility: [facility]:[place] : 1970 Planned Disposition: Home Anticipated Discharge Date: 04/03/19 Discharge Date: Expected LOS: 2 Initial Reviewer: [email or web address] Initial Review Date: 04/02/2019 Generated: 04/03/19 9:35 am Comments DCP- Discharge Planning Updated by [email or web address]: Lilibeth Boland on 04/03/19 7:[address] Patient Name: RICHAR BERNARD Encounter No: [id number] : 1970 Primary Insurance: [employer] Anticipated DC Date: 04-03-2019 Planned Disposition: Home External Planned Provider: : DCP follow-up note: Patient and family in agreement with discharge plan. No changes to plan. Case management will follow and assist as needed. Lilibeth Boland DCP- Discharge Planning Updated by [id number]: Lilibeth Boland on 04/02/19 4:[address] Patient Name: RICHAR BERNARD Admission Status: Elective Accout number: [id number] Admission Date: 04-01-2019 : 1970 Admission Diagnosis: Attending: TATIANA DURHAM Current LOS: 1 Anticipated DC Date: 04-03-2019 Planned Disposition: Home Primary Insurance: [employer] [facility] Discharge Planning Comments: CM met with patient to complete initial dc planning assessment. CM educated patient on the CM role and verbal consent given by patient to complete assessment. Patient lives at home with her and 13 year old daughter. At discharge patient plans to return and feels this is a safe discharge. CM discussed availability of home health, rehab services, and medical equipment. Patient denied known discharge needs at this time. CM will continue to follow and will assist as needed with dc plans/needs. Hospitality Ambassador: Lilibeth Boland DCPIA - Discharge Planning Initial Assessment Updated by [email or web address]: Lilibeth Boland on 04/02/19 4:59 pm * Is the patient Alert and Oriented? Yes * How many steps to enter\\exit or inside your home? 3/0 * PCP Dr. Galaviz * Pharmacy [facility] * Preadmission Environment Home with Family * ADLs Independent * Equipment CPAP * List name and contact numbers for known caregivers / representatives who currently or will assist patient after discharge: Delfino "Chi Bernard - * Verbal permission to speak to the caregivers and representatives has been obtained from the patient. Yes * Community resources currently utilized None * Please name any agencies selected above. [facility] for CPAP supplies * Additional services required to return to the preadmission environment? No * Can the patient safely return to the preadmission environment? Yes * Has this patient been hospitalized within the prior 30 days at any hospital? No Last DP export: 04/02/19 4:09 Patient Name: RICHAR BERNARD Page 17509 at 0836 All edits/amendments must be made on the electronic document DICTATION DATE: 04/03/19834 [employer] INTERPRETER: RODRIGUEZ 04/03/19834 RPT#: [id number] DC DATE: STATUS: ADM IN [facility] [address] [place] [address] END OF REPORT
[2019-04-03] MEDS ORDERED: HYDROCODONE-A1 UDTA2 PO (08:43)
[2019-04-03 09:21] VITALS: BP 175/101
--- NOTE | 2019-04-03 11:04 | NUR ---
DISCHARGED PATIENT HOME WITH FAMILY. DISCONTINUED IV, CATHETER TIP INTACT. WENT OVER DISCHARGE INSTRUCTIONS WITH PATIENT, PATIENT VERBALIZED UNDERSTANDING. DEMONSTRATED HOW TO CHANGE DRESSING TO RIGHT BACK. SENT HOME SUPPLIES PER PHYSICIAN REQUEST. DENIES ANYTHING FURTHER.
--- NOTE | 2019-04-04 16:15 | MORECARE ---
CASE MANAGEMENT DISCHARGE SUMMARY PATIENT: RICHAR ADAMSON UNIT: [id number] ADM DATE: 04/01/19 AGE: 48 : [birth year] SEX: F ROOM/BED: D.2231 AUTHOR: GABRIELE MCCRAY PHYSICIAN: REFERRING PHYSICIAN: CATALINA DURHAM MD DATE OF SERVICE: 04/04/19 Discharge Plan Patient Name: RICHAR ADAMSON Facility: [facility]:[place] : 1970 Planned Disposition: Home Anticipated Discharge Date: 04/03/19 Discharge Date: 04/03/2019 Expected LOS: 2 Initial Reviewer: [email or web address] Initial Review Date: 04/02/2019 Generated: 04/04/19 5:14 pm Comments DCP- Discharge Planning Updated by [email or web address]: Lilibeth Boland on 04/03/19 7:[address] Patient Name: RICHAR ADAMSON Encounter No: [id number] : 1970 Primary Insurance: [employer] Anticipated DC Date: 04-03-2019 Planned Disposition: Home External Planned Provider: : DCP follow-up note: Patient and family in agreement with discharge plan. No changes to plan. Case management will follow and assist as needed. Lilibeth Boland DCP- Discharge Planning Updated by [email or web address]: Lilibeth Boland on 04/02/19 4:[address] Patient Name: RICHAR ADAMSON Admission Status: Elective Accout number: [id number] Admission Date: 04-01-2019 : 1970 Admission Diagnosis: Attending: TATIANA DURHAM Current LOS: 1 Anticipated DC Date: 04-03-2019 Planned Disposition: Home Primary Insurance: [employer] Discharge Planning Comments: CM met with patient to complete initial dc planning assessment. CM educated patient on the CM role and verbal consent given by patient to complete assessment. Patient lives at home with her and 13 year old daughter. At discharge patient plans to return and feels this is a safe discharge. CM discussed availability of home health, rehab services, and medical equipment. Patient denied known discharge needs at this time. CM will continue to follow and will assist as needed with dc plans/needs. Budget Consultant: Lilibeth Boland DCPIA - Discharge Planning Initial Assessment Updated by [email or web address]: Lilibeth Boland on 04/02/19 4:59 pm * Is the patient Alert and Oriented? Yes * How many steps to enter\\exit or inside your home? 3/0 * PCP Dr. Galaviz * Pharmacy [facility] * Preadmission Environment Home with Family * ADLs Independent * Equipment CPAP * List name and contact numbers for known caregivers / representatives who currently or will assist patient after discharge: Delfino Lunsford" Marco Antonio - [phone] * Verbal permission to speak to the caregivers and representatives has been obtained from the patient. Yes * Community resources currently utilized None * Please name any agencies selected above. [facility] for CPAP supplies * Additional services required to return to the preadmission environment? No * Can the patient safely return to the preadmission environment? Yes * Has this patient been hospitalized within the prior 30 days at any hospital? No Last DP export: 04/03/19 7:36 Patient Name: RICHAR ADAMSON Page 31682 at 1615 All edits/amendments must be made on the electronic document DICTATION DATE: 04/04/191613 PHYSICIAN INTERNIST: RODRIGUEZ 04/04/19 161 RPT#: [id number] DC DATE:04/03/19 STATUS: DIS IN [facility] [address] [place] [address] END OF REPORT
== END 2019-04-03 11:06 | disposition home or self-care (01) | DRG 660 ==
LOC: D.SP 06:30 → D.PAN 08:00 → D.SP 08:00 → D.PAN 10:00 → D.OPS 10:00 → D.M3 13:32 → D.MS 13:32 → D.SP 15:09 → D.M3 15:09 → D.MS 15:09
PROVIDERS: Anesthesiology; Specialist; ADMIT Urology; ATTEND Urology
PROC: 0TC04ZZ Extirpation of Matter from Right Kidney, Percutaneous Endoscopic Approach (ICD-10-PCS; principal; 2019-04-01 08:00)
DX: N20.2 Calculus of kidney with calculus of ureter (principal); N39.0 Urinary tract infection, site not specified; E78.5 Hyperlipidemia, unspecified; E11.9 Type 2 diabetes mellitus without complications

== ENCOUNTER → 2019-04-09 17:25 | Outpatient (CLI) | payer BC ==
[2019-04-01 15:57] VITALS: BMI 38.9
[~2019-04-09 17:25] MED LIST changes: +HYDROCODONE-A1 UDTA2 PO
== END | disposition home or self-care (01) ==
LOC: D.LABREF 17:25
PROVIDERS: ATTEND Urology
DX: R82.90 Unspecified abnormal findings in urine (principal); R31.9 Hematuria, unspecified

== ENCOUNTER → 2019-11-14 14:06 | Outpatient (CLI) | payer BC ==
[2019-04-01 15:57] VITALS: BMI 38.9
== END | disposition home or self-care (01) ==
LOC: D.MRI 14:06
PROVIDERS: ATTEND Internal Medicine
DX: M54.2 Cervicalgia (principal); M54.12 Radiculopathy, cervical region; M54.16 Radiculopathy, lumbar region

== ENCOUNTER 2019-12-11 08:00 | Outpatient (CLI) | payer BC ==
[2019-04-01 15:57] VITALS: BMI 38.9
== END 2019-12-11 10:00 | disposition home or self-care (01) ==
LOC: D.MAMMO 08:00
PROVIDERS: ATTEND Internal Medicine
DX: Z12.31 Encounter for screening mammogram for malignant neoplasm of breast (principal)

== ENCOUNTER 2019-12-29 15:32 | Emergency (ER) | payer BC ==
[~2019-12-29] VITALS: Ht 162.6 cm; Wt 88.5 kg
[2019-12-29 15:39] VITALS: Ht 162.6 cm; Wt 88.5 kg
[2019-12-29 16:10] LABS: BASOPHILS 0.6 % (0-2); EOSINOPHILS 2.4 % (0-7); HEMATOCRIT 40.6 % (36.0-48.0); HEMOGLOBIN 13.2 g/dL (12-16); IMMATURE GRANULOCYTES 0.1 % (0-5); LYMPHOCYTES 45.2 % (15-50); MCH 29.6 pg (26.0-34.0); MCHC 32.5 g/dL (31.0-37.0); MONOCYTES 4.8 % (2-11); NEUTROPHILS 46.9 % (40-80); RBC 4.46 10x6/uL (4.00-5.40); RDW 12.4 % (11.5-14.5); WBC 8.5 10x3/uL (4.8-10.8)
[2019-12-29 16:19] LABS: CALC OSMOLALITY 286 mosm/kg (275-300); CALCIUM 8.9 mg/dL (8.5-10.1); CARBON DIOXIDE 29.9 mmol/L (21.0-32.0); CHLORIDE - SERUM 105 mmol/L (98-107); POTASSIUM - SERUM 4.2 mmol/L (3.5-5.1); SODIUM 139 mmol/L (136-145); UREA NITROGEN 14 mg/dL (7-18); eGFR NON AFRICAN AMERICAN 62 mL/min (90-120)
[2019-12-29 16:29] LABS: GLUCOSE 250 mg/dL (74-106)
[2019-12-29 16:31] LABS: APTT 37.4 SECONDS (22.8-39.4); INR 0.87 (0.85-1.17); PLATELET COUNT 300 10x3/uL (130-400); PROTIME 11.8 SECONDS (11.6-15.0)
[2019-12-29 16:36] LABS: ALBUMIN 3.3 g/dL (3.4-5.0); ALKALINE PHOSPHATASE 83 U/L (30-120); ALT (SGPT) 13 U/L (10-68); BILIRUBIN - TOTAL 0.17 mg/dL (0.2-1.3); CKMB 0.5 U/L (0.0-3.6); CREATINE KINASE 58 UL (21-215); PROTEIN - SERUM 6.8 g/dL (6.4-8.2)
[2019-12-29 16:38] LABS: TROPONIN-I < 0.017 ng/mL (0.000-0.060)
[2019-12-29 17:01] VITALS: BP 108/57
[2019-12-29] MEDS ORDERED: METHOCARBAMOL500 MG PO (18:09)
== END 2019-12-29 18:37 | disposition home or self-care (01) ==
LOC: D.ER 15:32
DX: R07.89 Other chest pain (principal); M62.838 Other muscle spasm; E11.9 Type 2 diabetes mellitus without complications; I10 Essential (primary) hypertension; Z72.0 Tobacco use; Z79.4 Long term (current) use of insulin

== ENCOUNTER 2020-02-20 20:02 | Emergency (ER) | payer BC ==
[~2020-02-20] VITALS: Ht 162.6 cm; Wt 90.9 kg
[~2020-02-20 20:02] MED LIST changes: +METHOCARBAMOL500 MG PO
[2020-02-20 20:04] VITALS: Ht 162.6 cm; Wt 90.9 kg
[2020-02-20 21:00] LABS: BASOPHILS 0.3 % (0-2); EOSINOPHILS 0.7 % (0-7); HEMOGLOBIN 13.6 g/dL (12-16); IMMATURE GRANULOCYTES 0.2 % (0-5); LYMPHOCYTES 16.3 % (15-50); MCH 29.4 pg (26.0-34.0); MCV 86.4 fL (80.0-100.0); MEAN PLATELET VOLUME 9.9 fL (7.4-10.4); MONOCYTES 5.7 % (2-11); NEUTROPHILS 76.8 % (40-80); PLATELET COUNT 326 10x3/uL (130-400); RBC 4.63 10x6/uL (4.00-5.40); RDW 12.4 % (11.5-14.5); WBC 15.4 10x3/uL (4.8-10.8)
[2020-02-20 21:04] LABS: APTT 36.5 SECONDS (22.8-39.4); PROTIME 13.1 SECONDS (11.6-15.0)
[2020-02-20 21:04] LABS: ANION GAP 16.2 mmol/L (8-16); CARBON DIOXIDE 23.4 mmol/L (21.0-32.0); POTASSIUM - SERUM 3.6 mmol/L (3.5-5.1)
[2020-02-20 21:10] LABS: ALBUMIN 3.7 g/dL (3.4-5.0); BILIRUBIN - TOTAL 0.33 mg/dL (0.2-1.3); PROTEIN - SERUM 7.2 g/dL (6.4-8.2)
[2020-02-20] MEDS ORDERED: HYDROCODON-ACE1 EA10 PO (22:56)
[2020-02-20 23:00] VITALS: BP 127/83
[2020-02-20 23:12] LABS: BACTERIA NONE SEEN /HPF (NONE SEEN); BILIRUBIN NEGATIVE (NEGATIVE); EPITHELIAL CELLS 0-5 /hpf (0-5); KETONE SMALL mg/dL (NEGATIVE); NITRITE NEGATIVE (NEGATIVE); UROBILINOGEN NORMAL mg/dL (< 2); WHITE CELLS - URINE 0-5 HPF (0-4)
[2020-02-20 23:13] LABS: AMORPHOUS SEDIMENT <1+ /lpf (NONE SEEN)
== END 2020-02-20 23:27 | disposition home or self-care (01) ==
LOC: EDBD 20:02 → D.ER 20:02
PROVIDERS: Family Medicine
DX: S00.83XA Contusion of other part of head, initial encounter (principal); S00.03XA Contusion of scalp, initial encounter; S10.93XA Contusion of unspecified part of neck, initial encounter; S70.01XA Contusion of right hip, initial encounter; S80.01XA Contusion of right knee, initial encounter; S20.20XA Contusion of thorax, unspecified, initial encounter; Y00.XXXA Assault by blunt object, initial encounter; E11.9 Type 2 diabetes mellitus without complications; I10 Essential (primary) hypertension; Z95.5 Presence of coronary angioplasty implant and graft; I25.10 Atherosclerotic heart disease of native coronary artery without angina pectoris; E78.5 Hyperlipidemia, unspecified

== ENCOUNTER 2020-08-17 10:08 | Day surgery (SDC) | payer BC ==
[~2020-08-17] VITALS: Ht 162.6 cm; Wt 85.5 kg
[2020-08-17 10:32] LABS: BASOPHILS 0.6 % (0-2); EOSINOPHILS 0.9 % (0-7); HEMATOCRIT 40.2 % (36.0-48.0); HEMOGLOBIN 13.1 g/dL (12-16); IMMATURE GRANULOCYTES 0.1 % (0-5); LYMPHOCYTE ABS# 3.17 10x3/uL (1.18-3.74); MCH 27.1 pg (26.0-34.0); MCHC 32.6 g/dL (31.0-37.0); MCV 83.1 fL (80.0-100.0); MEAN PLATELET VOLUME 9.5 fL (7.4-10.4); MONOCYTES 4.4 % (2-11); NEUTROPHIL ABS# 6.46 10x3/uL (1.56-6.13); PLATELET COUNT 345 10x3/uL (130-400); RBC 4.84 10x6/uL (4.00-5.40); RDW 13.4 % (11.5-14.5); WBC 10.2 10x3/uL (4.8-10.8)
[2020-08-17 10:42] LABS: ANION GAP 13.1 mmol/L (8-16); CALCIUM 9.1 mg/dL (8.5-10.1); CARBON DIOXIDE 26.4 mmol/L (21.0-32.0); CREATININE - SERUM 0.9 mg/dL (0.6-1.3); POTASSIUM - SERUM 4.5 mmol/L (3.5-5.1)
[2020-08-17 11:03] VITALS: BP 136/83; Ht 162.6 cm; Wt 85.5 kg
[2020-08-17] MEDS ORDERED: ADDERALL 5 MG TA5 M1 PO (11:13)
[2020-08-17] MEDS ORDERED: REGLAN10 MG PO (11:19)
--- NOTE | 2020-08-19 11:56 | OP ---
PATIENT NAME: RICHAR ADAMSON MEDICAL RECORD: [id number] :[birth year] LOCATION:D[facility] ADMISSION DATE: SURGEON: CATALINA IZAGUIRRE MD DATE OF OPERATION: 08/17/2020 PREOPERATIVE DIAGNOSES: 1. Intractable nausea and vomiting. 2. Dysphagia at the level of the lower esophageal sphincter. 3. History of gastric bypass. POSTOPERATIVE DIAGNOSES: 1. Intractable nausea and vomiting. 2. Dysphagia at the level of the lower esophageal sphincter. 3. History of gastric bypass. 4. Schatzki's stricture. 5. Hiatal hernia, moderate. 6. Gastrojejunal anastomotic stricture. 7. Severe jejunal inflammation with ulceration. 8. Gastric pouch had stretched out and is almost the size of a normal stomach. Retroflexion was easy. PROCEDURE: 1. Esophagogastrojejunoscopy with antral and distal esophageal biopsies. 2. Balloon dilation of the gastrojejunal anastomosis with a xzrawti-suc-nogdbufe balloon to 40-[place] Citizen. 3. Balloon dilation of the Schatzki stricture with a hmbuqhk-pwr-qfbizqqn balloon to 54-[place] Citizen. SURGEON: Catalina Izaguirre MD ATTENDANCE OFFICER: None. BLOOD LOSS: Minimal. ANESTHESIA: IV sedation. The risks, possible complications, and alternatives of the procedure were explained to the patient. She elected to proceed. DESCRIPTION OF PROCEDURE: The patient was conveyed to the endoscopy suite electively on 08/17/2020. IV sedation was induced by the anesthesia staff. A bite block was inserted. A gastroscope was inserted in the mouth. It was advanced easily into the hypopharynx. The esophagus was easily intubated as well as the stomach. The jejunum was not easily intubated. I found a slit that represented the gastrojejunal anastomosis. I had to push fairly hard with my gastroscope in order to get it through this. Just distal to this, it appeared there was afferent and efferent jejunal limbs. I believe that probably this was a candy cane type of anastomosis. I advanced a oltqhys-btg-ukkxkjhf balloon. I then balloon dilated the gastrojejunal anastomosis to 40-[place] Citizen for 3 minutes. The balloon was removed. I then withdrew into the cardia of the stomach. I advanced the pvwczls-vhm-pyaautca balloon and balloon dilated the Schatzki stricture to 54-[place] Citizen. The gastroscope and balloon dilator were then removed. I re-endoscoped the patient's esophagus and stomach as well as the jejunum. I noted no anastomotic disruption. The anastomosis certainly was bigger. I then went back to the Schatzki's ring and 4 quadrants I biopsied the Schatzki's ring OPERATIVE REPORT [id number] RICHAR ADAMSON endoscopically. The gastroscope was removed under direct vision. A postprocedure x-ray revealed no free air. I have reviewed the endoscopic findings with the patient. The patient is going to be dismissed home on Nexium as well as Carafate. I think that the inflammation and ulceration in the jejunum is due to flow of gastric acid through the gastrojejunal anastomosis and its effect on the jejunum there. TRANSINT:[id number] Voice Confirmation ID: [id number] DOCUMENT ID: [id number] CATALINA IZAGUIRRE MD at 1156 CC: NIKOLAS NGUYEN MD and VITA HAINES V [id number] DICTATION DATE: 08/17/20 1430 SENIOR ONLINE MARKETING MANAGER: 08/17/208 [facility] 08/17/20 [id number] [place] [address]
== END 2020-08-17 15:20 | disposition home or self-care (01) ==
LOC: D.OPS 10:08
PROVIDERS: Anesthesiology; ATTEND Surgery
DX: R11.2 Nausea with vomiting, unspecified (principal); R13.10 Dysphagia, unspecified; Z98.84 Bariatric surgery status; K22.2 Esophageal obstruction; K44.9 Diaphragmatic hernia without obstruction or gangrene; K91.89 Other postprocedural complications and disorders of digestive system; K28.6 Chronic or unspecified gastrojejunal ulcer with both hemorrhage and perforation; E78.5 Hyperlipidemia, unspecified; E11.9 Type 2 diabetes mellitus without complications; E03.9 Hypothyroidism, unspecified